=== PATIENT | male | born 1960 | race Caucasian/White ===

== ENCOUNTER 2018-10-04 20:15 | Inpatient (IN) | payer OTHER ==
[~2018-10-04] VITALS: Ht 170.2 cm; Wt 83.8 kg
[~2018-10-04 20:15] MED LIST: ATIVAN0.5 MG PO; CARVEDILOL12.5 MG PO; COREG6.25 MG PO; ESCITALOPRAM OX20 MG PO; HYDROCODON-ACE1 EAC7 PO; ISOSORBIDE DINI30 MG PO; LIPITOR80 MG PO; NORCO 5-325 TA1 EAC1 PO; PROTONIX40 M1 PO; SERTRALINE HCL50 MG PO; TORADOL 10 MG T10 MG PO; ZETIA10 MG PO
[2018-10-04 20:18] VITALS: BP 208/117
[2018-10-04 20:35] LABS: ABSOLUTE LYMPHOCYTES 1.1 thou/uL (0.8-5.3); ABSOLUTE MONOCYTES 0.9 thou/uL (0.0-1.2); ABSOLUTE NEUTROPHILS 8.1 thou/uL (1.6-8.1); BASOPHILS 0.5 %; EOSINOPHILS 0.1 %; HEMATOCRIT 49.4 % (42.0-52.0); HEMOGLOBIN 16.4 gm/dL (14.0-18.0); LYMPHOCYTES 10.5 %; MCH 29.8 pg (26.0-34.0); MCHC 33.2 g/dL (28.0-37.0); MCV 89.6 fL (80.0-100.0); MPV 8.5 fl. (7.2-11.1); NUCLEATED RBCS 0 /100WBC; PLATELET COUNT* 233 thou/uL (150-400); POLYS 79.9 %; RBC 5.51 mil/uL (4.50-6.00); RDW-CV 14.4 % (10.5-14.5); WBC 10.1 thou/uL (4.0-11.0)
[2018-10-04 20:43] LABS: ANION GAP 12 mmol/L (7-16); BUN 16 mg/dL (7-18); CALCIUM 9.3 mg/dL (8.5-10.1); CHLORIDE 99 mmol/L (98-107); CO2 25 mmol/L (21-32); CREATININE 0.8 mg/dL (0.6-1.3); GLUCOSE 131 mg/dL (70-99); POTASSIUM 4.1 mmol/L (3.5-5.1); SODIUM 136 mmol/L (136-145)
[2018-10-04 20:45] LABS: PROTIME 10.6 Seconds (9.20-11.50)
[2018-10-04 20:54] LABS: ALKALINE PHOSPHATASE 115 U/L (46-116); LIPASE 63 U/L (73-393); NT-PRO BRAIN NAT PEPTIDE 477 pg/mL (<300); SGOT 21 U/L (15-37); SGPT 34 U/L (30-65); TOTAL BILIRUBIN 0.6 mg/dL (<0.1-1.0); TOTAL PROTEIN 8.2 g/dL (6.4-8.2); TROPONIN-I LEVEL <0.06 ng/mL (<0.06)
[2018-10-05 04:26] VITALS: BP 134/70
[2018-10-05 04:30] VITALS: BP 147/85
--- NOTE | 2018-10-05 06:54 | NUR ---
REPORT RECIEVED FROM ER. PT TRANSFERED TO ROOM 228, PT ORIENTED TO ROOM, CALL LIGHT SHOWN, FALL AGREEMENT GONE OVER, PT STATED UNDERSTANDING. IV PATENT. ADMISSION DOCUMENTED. PAIN MEDS GIVEN PER E-MAR. TELE MONITOR IN PLACE. PT UNSURE OF HOME MEDICATIONS, STATING THE NAMES SOUND RIGHT, BUT HE IS UNSURE ON DOSING. HOME MEDICATIONS PLACED IN PHARMACY BAG #[id number] AND PLACED IN RETURN TO PHARMACY BIN. WILL CONTINUE WITH PLAN OF CARE.
[2018-10-05 07:00] VITALS: BP 128/69
--- NOTE | 2018-10-05 10:14 | NUR ---
INITAL ASSESSMENT COMPLETED CHARTED. VSS. TRACING SR ON MONITOR. PT C/O INTERMITTENT CHEST PAIN. PRN MMORPHONE GIVEN WITH GOOD RESULTS. PT DEIES ANY OTHER PAIN, SOD, N/V/D, DIZZINESS. PT DENIES ANY FURTHER NEEDS AT THSI TIME. HOURLY ROUNDING IN PLACE FOR PT SAFETY. CLWR
[2018-10-05 16:27] VITALS: BP 105/70
[2018-10-05 20:15] VITALS: BP 134/72
[2018-10-06] VITALS (12 sets, daily range): BP systolic 97–143; BP diastolic 51–82
[2018-10-06 05:12] LABS: CHOLESTEROL 159 mg/dL (<200); HDL CHOLESTEROL 51 mg/dL (>40); LDL CHOLESTEROL 90 mg/dL (<100); TC:HDL 3.1 Ratio (Not establshd); TRIGLYCERIDE 91 mg/dL (<150); VLDL 18 mg/dL (<40)
[2018-10-06 05:20] LABS: SERUM ASSESSMENT CLEAR
--- NOTE | 2018-10-06 05:46 | NUR ---
PT SLEPT MOST OF SHIFT. ASSESSMENT DOCUMENTED. MEDS GIVEN PER E-MAR. IV PATENT, FLUIDS INFUSING. PAIN MEDS GIVEN PER E-MAR. PT REMAINED NPO AFTER MIDNIGHT. WILL CONTINUE WITH PLAN OF CARE.
--- NOTE | 2018-10-06 10:01 | NUR ---
ASSUMED CARE OF PATIENT THIS AM AT 0730. PATIENT IS ALERT ORIENTED X 4. HE C/O CHEST PAIN AND RIGHT ARM PAIN THIS AM. DR GONZALEZ IN TO ROUND AND ORDERS GIVEN THAT PATIENT CAN HAVE A LIGHT BREAKFAST. PATIENT MEDICATED FOR PAIN X 1. PATIENT ALSO MEDICATED FOR ANXIETY. TELE SHOWS SR. WILL CONTINUE TO MONITOR PATIENT COMFORT.
--- NOTE | 2018-10-06 11:06 | NUR ---
cm completed initial assessemnt. edu pt on role of cm. discussed dc plan. pt is a&o. states he lives at home w/spouse. children and spouse are his support system. pt is employed and active. pt is ready to go home today. no hx w/hh or snf. stated niether would be necessary. plans to d/c to home. cm to remain available to assist as needed.
--- NOTE | 2018-10-06 12:54 | CON ---
[address] [address] CONSULTATION Name: JUSTO ENGLISH Room: [address] IN [facility]#: [id number] Admission: 10/05/18 Attend Phys: Adriana Darby MD Discharge: Date of : 58 Report #: [id number] THIS REPORT FOR: //name// CC: Mindy Roberts CARDIOLOGY CONSULTATION HISTORY OF PRESENT ILLNESS: I was asked by Dr. Adriana Darby to see this 58-year-old white male in Cardiology consultation for evaluation of chest pain and essential hypertension. This man's blood pressure when he was admitted was 208/117. This man has a history of coronary artery disease. He had bypass surgery in 04/2017 at [facility] and had 6-vessel bypass. Over the years, he has had 6 stents as well. He had a right carotid endarterectomy at [facility] 3 months ago. He had an VT 2 years ago. He has an inferior VT on his EKG. He has been under a lot of physical and emotional stress lately. He presented to the ER last night with chest pain. It was in the upper chest. He said it felt like he had been kicked by a mule. The pain was a 9.5 on a scale of 10. The pain would last for hours at a time and it was intermittent on and off since Saturday night. He relates the onset of this to having done a lot of heavy exertion and lifting when he moved from an apartment in [place] out to [place]. He describes his chest pain as being worse with activity, but occurring at rest as well. It was better with rest. It is associated with shortness of breath and nausea, but not diaphoresis or vomiting. It was not aggravated by food, but seemed to be relieved by food. He did not try nitroglycerin. The pain did not radiate into his neck or down his arms. Pain started at 9:00 p.m. on Saturday night. He also had epigastric pain according to the Emergency Room physician. He has been under quite a bit of emotional stress as he has a new job here at [employer]. 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 He had been taking some tramadol for tendinitis in his left elbow. Of note is that on his CT of his chest he did have evidence of the bypass surgery and significant coronary calcification as well as impressive duodenitis. His epigastric pain could be due to his duodenitis. He does have dyspnea on exertion. He does not have orthopnea. He does get paroxysmal nocturnal dyspnea, but no edema. He has had some near syncope and syncope in the past. He had a possible near syncope last night. Coronary risk factors include smoking a pack a day. He was told in no uncertain terms to stop smoking today. He does have hypercholesterolemia, but not diabetes. He does have high blood pressure. There is family history of heart disease. He has not had renal disease. He has had carotid vascular disease. He does have pain in his thighs when he walks but has never been told he had peripheral vascular disease. He has never had a stroke or TIA. He is aware of some family history of coronary artery disease; he is not sure exactly what. His father in his 80s in the and he thinks it was a heart attack. ALLERGIES: He is allergic to some antibiotic he is not sure what. It was given [facility] [address] [place] [address] CONSULTATION Name: JUSTO ENGLISH Room: [address] IN [facility].#: [id number] Admission: 10/05/18 Attend Phys: Adriana Darby MD Discharge: Date of : 58 Report #: [id number] to him IV and he got a rash from it. MEDICATIONS: He does not know his home medications. Active scripts when he came in included hydrocodone/acetaminophen 5/325 one tablet q.4 hours p.r.n. pain. Also apparently he was on sertraline 50 mg daily, lorazepam 0.5 mg p.r.n., ezetimibe 10 mg daily, Protonix 40 mg daily, Lexapro 20 mg daily, carvedilol 12.5 mg b.i.d., atorvastatin 80 mg daily and isosorbide 60 mg daily. He had not been taking his medications regularly for the last 3 or 4 weeks. PAST MEDICAL HISTORY: Other medical and surgical issues include history of appendectomy, peritonitis and tonsillectomy. SOCIAL HISTORY: He is . His is in poor health, however. 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 He has an average of 6 alcoholic beverages a week. He was told by me to stop drinking. He smokes a pack a day. He was told to stop smoking. REVIEW OF SYSTEMS: Positive for erectile dysfunction, cough, pneumonia, wheezing or asthma, chest discomfort, shortness of breath with exercise, shortness of breath with lying down, waking up short of breath, vomiting, seasonal allergies, medical allergies, depression, anxiety, arthritis, rashes, wearing glasses, decreased hearing and dentures. PHYSICAL EXAMINATION: GENERAL: He presents as a well-developed, well-nourished white male in no acute distress. VITAL SIGNS: Pulse was 68 and regular, blood pressure is 147/85, respirations are 16 and regular and temperature is 98 degrees. HEENT: His head is atraumatic. Eyes clear. NECK: Supple. There is no jugular venous distention or hepatojugular reflux. Thyroid is not enlarged. There is no adenopathy. SKIN: Warm and dry. Mucous membranes are moist. LUNGS: Clear to auscultation and percussion. HEART: Revealed normal first and second heart sounds. There is a soft S4. There is no S3. There are no murmurs, rubs, thrills, heaves, or gallops. PMI is nondisplaced. ABDOMEN: Soft, flat and nontender. No palpable masses, no organomegaly. EXTREMITIES: Reveal no cyanosis, clubbing or edema. NEUROLOGIC: The patient mentated normally, talked normally and moved all extremities normally. IMAGING AND LABORATORY DATA: His chest x-ray showed previous sternotomy. CT of the chest showed the duodenitis, previous sternotomy and coronary calcifications. Troponins were negative x 3. BNP was 477. His EKG showed normal sinus rhythm. There was an old inferior myocardial infarction with Q-waves in the inferior leads. There was late [place] [address] CONSULTATION Name: JUSTO ENGLISH Room: [address] IN [facility]#: [id number] Admission: 10/05/18 Attend Phys: Adriana Darby MD Discharge: Date of : 58 Report #: [id number] R-wave and an old anterior infarct cannot be excluded. There is left atrial enlargement. There were minor nonspecific T-wave abnormalities. IMPRESSION: 1. Chest pain which could well be cardiac pain. 2. Coronary artery disease. 3. Status post inferior myocardial infarction. 4. Essential hypertension. 5. Hyperlipidemia. 6. Smoking. 7. Duodenitis. 8. Status post bypass graft surgery x 6. 9. Status post coronary stents x 6. RECOMMENDATIONS: I would increase his antihypertensives a bit. I would do a cardiac catheterization on this man to be sure of as to what is going on with his severe chest pain he had been having. He was also offered a nuclear stress test and he prefers to have the cardiac catheterization. The risks and benefits of the cardiac catheterization were explained as were the risks and benefits of the nuclear stress test. He should also have an echo. Thank you very much for asking me to see the patient. If there are any questions, please feel free to contact me. <ELECTRONICALLY SIGNED> By: Coy Christensen MD, FACC 10/06/18 1254 1216 51F. Gautam Hernandez MD, FACC /nt
--- NOTE | 2018-10-06 16:51 | 2DMMODE ---
[place] [address] 2 D/M-MODE ECHOCARDIOGRAM Name: JUSTO ENGLISH Room: [address] IN .R.#: [id number] Admission: 10/05/18 Attend Phys: Adriana Darby, Discharge: Date of : 58 Date of Service: 10/06/18 1651 Report #: [id number] THIS REPORT FOR: //name// APPROVED REPORT Study performed: 10/06/2018 11:04:54 EXAM: Comprehensive 2D, Doppler, and color-flow Echocardiogram Patient Location: Bedside BSA: 1.87 HR: 56 bpm BP: 121/76 mmHg Other Information Study Quality: Fair Indications Chest Pain 2D Dimensions IVSd: 16.18 (7-11mm) LVOT Diam: 22.26 (18-24mm) LVDd: 40.94 mm PWd: 12.84 (7-11mm) Ascending Ao: 36.77 (22-36mm) LVDs: 32.67 (25-40mm) Aortic Root: 33.12 mm Volumes Left Atrial Volume (Systole) LA ESV Index: 36.90 mL/m2 Aortic Valve AoV Peak Jacinto.: 0.74 m/s AO Peak Gr.: 2.19 mmHg LVOT Max P.17 mmHg AO Mean Gr.: 1.40 mmHg LVOT Mean P.15 mmHg LVOT Max V: 0.74 m/s AO V2 VTI: 13.38 cm LVOT Mean V: 0.50 m/s OVI (VTI): 4.11 cm2 LVOT V1 VTI: 14.13 cm Mitral Valve E/A Ratio: 1.56 MV Decel. Time: 159.54 ms MV E Max Jacinto.: 0.74 m/s MV PHT: 46.27 ms MVA (PHT): 4.76 [place] [address] 2 D/M-MODE ECHOCARDIOGRAM Name: JUSTO ENGLISH Room: [address] IN [facility]#: [id number] Admission: 10/05/18 Attend Phys: Adriana Darby, Discharge: Date of : 58 Date of Service: 10/06/18 1651 Report #: [id number] TDI E/Lateral E': 8.22 E/Medial E': 8.22 Medial E' Jacinto.: 0.09 m/s Lateral E' Jacinto.: 0.09 m/s Pulmonary Valve PV Peak Jacinto.: 0.80 m/s PV Peak Gr.: 2.56 mmHg Left Ventricle The left ventricle is normal size. There is inferobasilar hypokinesis. Mild concentric left ventricular hypertrophy. Left ventricular systolic function is normal. The left ventricular ejection fraction is within the normal range. LVEF is 55%. The left ventricular diastolic function is normal. Right Ventricle The right ventricle is normal size. The right ventricular systolic function is normal. Atria Left atrium is mildly dilated. The right atrium size is normal. Aortic Valve The aortic valve is normal in structure. No aortic regurgitation is present. There is no aortic valvular stenosis. Mitral Valve The mitral valve is normal in structure. Trace mitral regurgitation. No evidence of mitral valve stenosis. Tricuspid Valve The tricuspid valve is normal in structure. There is no tricuspid valve regurgitation noted. Pulmonic Valve The pulmonary valve is normal in structure. There is no pulmonic valvular regurgitation. Great Vessels The aortic root is normal in size. IVC is normal in size and collapses >50% with inspiration. Pericardium There [place] [address] 2 D/M-MODE ECHOCARDIOGRAM Name: JUSTO ENGLISH Room: [address]#: [id number] Admission: 10/05/18 Attend Phys: Adriana Darby, Discharge: Date of : 58 Date of Service: 10/06/18 1651 Report #: [id number] <Conclusion> The left ventricle is normal size. Mild concentric left ventricular hypertrophy. Left ventricular systolic function is normal. The left ventricular ejection fraction is within the normal range. LVEF is 55%. The right ventricle is normal size. Left atrium is mildly dilated. The aortic valve is normal in structure. The mitral valve is normal in structure. Trace mitral regurgitation. The tricuspid valve is normal in structure. IVC is normal in size and collapses >50% with inspiration. There is no pericardial effusion. There is inferobasilar hypokinesis. <ELECTRONICALLY SIGNED> By: Lei Sharp MD, FACC 10/06/18 165 50 50 Lei Sharp MD, FACC /INF
--- NOTE | 2018-10-06 16:57 | EKG ---
[place] [address] ELECTROCARDIOGRAM REPORT Name: JUSTO ENGLISH Room: [address] ADM IN [facility]#: [id number] Admission: 10/05/18 Attend Phys: Adriana Darby MD Discharge: Date of : 58 Report #: [id number] THIS REPORT FOR: //name// [facility] ED Test Date: 2018-10-04 Test Time: 20:19:58 Pat Name: JUSTO ENGLISH Department: Room: [facility] Gender: M Char Conveyor Tender Cellar: : 1960 Requested By: Spencer Martinez Order Number: [id number] MD: Goran Waters Measurements Intervals [place] Rate: 83 P: 45 MO: 133 QRS: 54 QRSD: 92 T: 109 QT: 384 QTc: 452 Interpretive Statements Sinus rhythm Left atrial enlargement Abnormal R-wave progression, late transition Inferior infarct, old Lateral leads are also involved Baseline wander in lead(s) V1,V3,V4,V5,V6 No previous ECG available for comparison Electronically Signed On 10-06-2018 16:56:48 CDT by Goran Waters [email or web address] <ELECTRONICALLY SIGNED> By: Goran Waters MD, FACC 10/06/18 1656 18 18 Goran Waters MD, FAC /EPI
[2018-10-07] VITALS: BP 112/78
[2018-10-07 04:00] VITALS: BP 111/69
[2018-10-07 04:35] LABS: HEMATOCRIT 39.5 % (42.0-52.0); MCHC 32.8 g/dL (28.0-37.0); MCV 91.5 fL (80.0-100.0); MPV 8.8 fl. (7.2-11.1); RBC 4.31 mil/uL (4.50-6.00); RDW-CV 14.6 % (10.5-14.5); WBC 7.1 thou/uL (4.0-11.0)
[2018-10-07 04:58] LABS: ALBUMIN 2.8 g/dL (3.4-5.0); CALCIUM 8.2 mg/dL (8.5-10.1); CREATININE 1.1 mg/dL (0.6-1.3); POTASSIUM 4.7 mmol/L (3.5-5.1); TOTAL BILIRUBIN 0.3 mg/dL (<0.1-1.0); TOTAL PROTEIN 5.8 g/dL (6.4-8.2); TROPONIN-I LEVEL 0.11 ng/mL (<0.06)
--- NOTE | 2018-10-07 06:32 | NUR ---
PT'S GROIN SITE SOFT NON TENDER, NO BRUISING OR HEMATOMA. SMALL AMOUNT OF BLOOD TO ANGIOSEAL. PT GIVEN PRN VICODIN DURING SHIFT FOR PAIN IN RIGHT ELBOW ASSOCIATED WITH TENDON INJURY PER PT'S REPORT.
[2018-10-07 07:30] VITALS: BP 122/60
[2018-10-07 09:46] VITALS: BP 122/60
--- NOTE | 2018-10-07 10:22 | NUR ---
RECEIVED PT CARE 0700. HE IS AWAKE/ALERT AND ORIENTED X4. VSS. LUGGAGE LINER TRACING SB. HE DENIES ANY SOA. O2 SAT 96% ON ROOM AIR. UP AD ISAIAH IN ROOM, GAIT IS STEADY. AM ASSESSMENT CHARTED. MEDS GIVEN PER MAR. PATIENT ANXIOUS FOR DC POTENTIALLY TODAY. CARDIOLOGY SIGNING OFF PER DR GONZALEZ. CALL LIGHT WITHIN REACH. WILL CONTINUE TO MONITOR.
[2018-10-07 11:21] VITALS: BP 124/62
[2018-10-07 11:39] VITALS: BP 122/60
[2018-10-07] MEDS ORDERED: ISORDIL10 MG PO (11:58)
[2018-10-07] MEDS ORDERED: PANTOPRAZOLE SO40 M1 PO (11:58)
[2018-10-07] MEDS ORDERED: CARVEDILOL12.5 MG PO (11:58)
[2018-10-07] MEDS ORDERED: ASPIR 8181 MG PO (11:58)
[2018-10-07] MEDS ORDERED: CLOPIDOGREL75 MG PO (11:58)
--- NOTE | 2018-10-07 15:00 | CARD ---
[address] [address] CARDIAC CATH REPORT Name: JUSTO ENGLISH Room: [address]#: [id number] Admission: 10/05/18 Attend Phys: Adriana Darby MD Discharge: 10/07/18 Date of : 58 Report #: [id number] THIS REPORT FOR: //name// APPROVED REPORT Study performed: 10/06/2018 14:37:56 Patient Details The patient is a 58 year-old male Event Personnel Lei Sharp Windlasser, Stacey English RN Service Greeter, Luca Barber INSERT MOLDING OPERATOR Scrub, Selin Cates RTR Monitor, Сергей Luke INSERT MOLDING OPERATOR Monitor Procedures Performed Left Heart Cath Coronaries, Bypass Grafts [id number] LHCCORCABG CHARISSE Place w/wo Plasty Single CIRC [id number] PTCA Single Vessel OM [id number] PCISINGLE Indication Unstable angina Risk Factors Hypercholesterolemia, Hypertension Previous Procedures/Diagnoses Previous CABGPrevious PCI Admission/Lab Medications/Medications given during procedure Angiomax bolus and infusion Procedure Narrative The patient was brought electively to the Cardiac Catheterization Laboratory and was prepped and draped in a sterile manner. The right femoral was infiltrated with 2% Lidocaine subcutaneous anesthesia. A [place] 6 FR sheath was inserted into the RFA. Coronary angiography was performed using coronary diagnostic catheters. The right coronary system was accessed and visualized with a Diagnostic catheter. The left coronary system was accessed and visualized with a AR2 Mod catheter. The left ventricle was accessed and visualized with a JL4 catheter. Left ventricular/Aortic Valve gradient assessed via catheter pullback. Pre-demployment femoral angiogram was performed . Closure device was deployed with a 6 Fr Angioseal. The patient tolerated the procedure well and [place] [address] CARDIAC CATH REPORT Name: JUSTO ENGLISH Room: [address]#: [id number] Admission: 10/05/18 Attend Phys: Adriana Darby MD Discharge: 10/07/18 Date of : 58 Report #: [id number] associated with the procedure. There was no hematoma. Intraoperative Conscious Sedation Sedation start time: 151 Case end Time: 1617 Fentanyl 50 mcg Fluoro Time: 18.1 minutes Dose: DAP 296108 cGycm2 2934 mGy Contrast Type and Amount: Visipaque 360 ml [place] Artery Percent Stenosis Grafts (Complete if Previous CABG=Yes: Percent Stenosis) #1 patent GRADY graft to the LAD with 50% ostial narrowing #2 widely patent saphenous vein graft the distal right coronary artery #3 occlusion of the previously constructed vein graft the circumflex coronary artery with persistence of the interposition portion between 2 distal marginal branches Diagnostic Cath Left Main 40% tubular narrowing LAD 40-50% ostial narrowing with 75% tubular mid to distal narrowing and reciprocal flow reflecting a patent GRADY graft to the distal LAD Circumflex 80% ostial narrowing with 90% proximal stenosis and 95% stenosis of the proximal portion of the first marginal branch with 50% tubular distal circumflex narrowing and the presence of an interposition graft between 2 distal marginal branches Right Coronary 100% proximal occlusion Left Ventriculography The left ventricle is normal in size with normal contractility. The left ventricular ejection fraction is estimated to be 55%. Left ventricular wall motion abnormalities are present. There is no mitral insufficiency. Inferobasilar hypokinesis is noted Hemodynamics The aortic pressure is 105/40 mmHg with a mean of 70 mmHg. The left ventricular pressure is 108/5 mmHg with a mean of mmHg. The left ventricular end diastolic pressure is 24 mmHg. There was no gradient across the aortic valve upon pullback. PCI Technique Lesion Anticoagulation was achieved with Angiomax. [place] [address] CARDIAC CATH REPORT Name: JUSTO ENGLISH Room: [address]#: [id number] Admission: 10/05/18 Attend Phys: Adriana Darby MD Discharge: 10/07/18 Date of : 58 Report #: [id number] with Angiomax IV 13 ml. Percutaneous coronary intervention was performed on the first obtuse marginal branch segment. The lesion stenosis prior to intervention was 95% with SRAVAN 2 flow. A 6F XB LAD 3.5 Guide Catheter was used to engage the Left ostium. A IG: BMW 190cm Interventional Guidewire was used to cross the lesion. BALLOON DILATION A Balloon catheter Trek RX 2.25 X 8 was inserted and inflated up to 12atm for 10seconds. STENT DEPLOYMENT A stent was inserted and inflated up to 20.00atm for 8seconds. Final angiography reveals 30 % stenosis with SRAVAN flow. PCI Technique Lesion 2 Percutaneous Coronary Intervention was performed on the proximal circumflex. The lesion stenosis prior to intervention was 90% with SRAVAN 3 flow. Balloon Dilation A Balloon catheter Trek RX 2.25 X 8 was inserted and inflated up to 15.00atm for 12seconds. Stent Deployment A drug-eluting stent was inserted and inflated up to jose for seconds. Final angiography reveals 10 % stenosis with SRAVAN 3 flow. PCI Technique Lesion 3 Percutaneous Coronary Intervention was performed on the ostial circumflex. The lesion stenosis prior to intervention was 80% with SRAVAN 3 flow. Stent Deployment A drug-eluting stent Xience Aletha 2.75X8mm was inserted and inflated up to 14atm for 10seconds. Final angiography reveals 0 % stenosis with SRAVAN 3 flow. Comments This is a complex procedure by virtue of marked calcification in the proximal circumflex location and nature of the bifurcation circumflex disease [place] [address] CARDIAC CATH REPORT Name: JUSTO ENGLISH Room: [address] [place] [facility]#: [id number] Admission: 10/05/18 Attend Phys: Adriana Darby MD Discharge: 10/07/18 Date of : 58 Report #: [id number] preparation Conclusion #1 severe multivessel coronary artery disease characterized by the following: A 40% tubular left main coronary artery coronary artery narrowing B 40-50% ostial LAD narrowing with 75% tubular mid to distal LAD narrowing and reciprocal flow distally reflecting a patent GRADY graft C 80% ostial with 90% proximal circumflex proximal stenosis and 95% stenosis of the proximal portion of the first marginal branch with 50% irregular distal circumflex narrowing D 100% proximal right coronary artery occlusion #2 graft study characterized by the following: A 50% very proximal narrowing of the GRADY graft to the LAD B widely patent saphenous vein graft to the distal right coronary artery C total occlusion of the proximal portion of the vein graft the circumflex with patency of the interposition portion of the graft between 2 marginal branches #3 moderate elevation of left ventricular end-diastolic pressure at rest #4 successful percutaneous coronary intervention with deployment of sequential drug-eluting stents at the sites of 80% ostial and 90% proximal circumflex stenosis with 0 and 10% residual narrowings #5 successful percutaneous transluminal coronary angioplasty the site of 95% ostial first marginal narrowing with 30% residual narrowing Recommendations Cardiac Risk Reduction Program Medications Administered Aspirin (any) [place] [address] CARDIAC CATH REPORT Name: JUSTO ENGLISH Room: [address]#: [id number] Admission: 10/05/18 Attend Phys: Adriana Darby MD Discharge: 10/07/18 Date of : 58 Report #: [id number] Diagnostic Cath Approved by: Lei Sharp MD Date/Time: 10/07/2018 14:52:39 <ELECTRONICALLY SIGNED> By: Lei Sharp MD, [facility] 10/07/18 1459 1459 1459Lei Sharp MD, [facility] /INF
--- NOTE | 2018-10-07 18:30 | EKG ---
[place] [address] ELECTROCARDIOGRAM REPORT Name: JUSTO ENGLISH Room: [address] IN .R.#: [id number] Admission: 10/05/18 Attend Phys: Adriana Darby MD Discharge: 10/07/18 Date of : 58 Report #: [id number] THIS REPORT FOR: //name// [facility] Test Date: 2018-10-06 Test Time: 17:38:12 Pat Name: JUSTO ENGLISH Department: Room: [address] Gender: M Saturator: : 1960 Requested By: Lei Sharp Order Number: [id number] Vianey MD: Goran Waters Measurements Intervals [place] Rate: 61 P: 53 [place]: 133 QRS: 65 QRSD: 100 T: 149 QT: 439 QTc: 443 Interpretive Statements Sinus rhythm Left atrial enlargement Inferior infarct, old Lateral leads are also involved Compared to ECG 10/04/2018 20:19:58 No significant changes Electronically Signed On 10-07-2018 18:29:57 CDT by Goran Waters [email or web address] <ELECTRONICALLY SIGNED> By: Goran Waters MD, FACC 10/07/18 1829 1738 1738 Goran Waters MD, [facility] /EPI
--- NOTE | 2018-10-07 18:34 | EKG ---
[place] [address] ELECTROCARDIOGRAM REPORT Name: JUSTO ENGLISH Room: [address] IN ..#: [id number] Admission: 10/05/18 Attend Phys: Adriana Darby MD Discharge: 10/07/18 Date of : 58 Report #: [id number] THIS REPORT FOR: //name// [facility] Test Date: 2018-10-07 Test Time: 08:27:36 Pat Name: JUSTO ENGLISH Department: Room: [address] Gender: M Senior Staff Consultant: : 1960 Requested By: Lei Sharp Order Number: [id number] Vianey MD: Goran Waters Measurements Intervals [place] Rate: 58 P: 48 VA: 133 QRS: 65 QRSD: 95 T: 92 QT: 416 QTc: 409 Interpretive Statements Sinus rhythm Atrial premature complex Left atrial enlargement Inferior infarct, old Lateral leads are also involved Compared to ECG 10/04/2018 20:19:58 Atrial premature complex(es) now present Myocardial infarct finding still present Electronically Signed On 10-07-2018 18:33:53 CDT by Goran Waters [email or web address] <ELECTRONICALLY SIGNED> By: Goran Waters MD, FACC 10/07/18 1833 0827 0827 Goran Waters MD, [facility] /EPI
== END 2018-10-07 13:59 | disposition home or self-care (01) | DRG 247 ==
LOC: M.ERS 20:15 → M.TBA-ER 10-05 02:19 → M.2W 10-05 02:19
PROVIDERS: Emergency Medicine; Internal Medicine; ADMIT Internal Medicine
PROC: B211YZZ Fluoroscopy of Multiple Coronary Arteries using Other Contrast (ICD-10-PCS; principal; 2018-10-06)
PROC: 027136Z Dilation of Coronary Artery, Two Arteries with Three Drug-eluting Intraluminal Devices, Percutaneous Approach (ICD-10-PCS; principal; 2018-10-06)
PROC: B215YZZ Fluoroscopy of Left Heart using Other Contrast (ICD-10-PCS; principal; 2018-10-06)
PROC: B218YZZ Fluoroscopy of Left Internal Mammary Bypass Graft using Other Contrast (ICD-10-PCS; principal; 2018-10-06)
PROC: B213YZZ Fluoroscopy of Multiple Coronary Artery Bypass Grafts using Other Contrast (ICD-10-PCS; principal; 2018-10-06)
PROC: 4A023N7 Measurement of Cardiac Sampling and Pressure, Left Heart, Percutaneous Approach (ICD-10-PCS; principal; 2018-10-06)
DX: I25.810 Atherosclerosis of coronary artery bypass graft(s) without angina pectoris (principal); I10 Essential (primary) hypertension; K29.80 Duodenitis without bleeding; E78.5 Hyperlipidemia, unspecified; G89.29 Other chronic pain; M54.9 Dorsalgia, unspecified; F17.210 Nicotine dependence, cigarettes, uncomplicated; M77.9 Enthesopathy, unspecified; I73.9 Peripheral vascular disease, unspecified; K40.90 Unilateral inguinal hernia, without obstruction or gangrene, not specified as recurrent; K21.9 Gastro-esophageal reflux disease without esophagitis; F10.20 Alcohol dependence, uncomplicated; Z91.14 Patient's other noncompliance with medication regimen; I25.2 Old myocardial infarction; Z95.1 Presence of aortocoronary bypass graft; Z95.5 Presence of coronary angioplasty implant and graft; Z90.49 Acquired absence of other specified parts of digestive tract; Z79.899 Other long term (current) drug therapy; Z88.1 Allergy status to other antibiotic agents

== ENCOUNTER 2019-01-19 21:14 | Emergency (ER) | payer OTHER ==
[~2019-01-19] VITALS: Ht 170.2 cm; Wt 80.7 kg
[~2019-01-19 21:14] MED LIST changes: +ASPIR 8181 MG PO; +CLOPIDOGREL75 MG PO; +ISORDIL10 MG PO; +PANTOPRAZOLE SO40 M1 PO
[2019-01-19 21:52] LABS: ABSOLUTE BASOPHILS 0.1 thou/uL (0.0-0.2); ABSOLUTE EOSINOPHILS 0.2 thou/uL (0.0-0.7); ABSOLUTE MONOCYTES 0.7 thou/uL (0.0-1.2); ABSOLUTE NEUTROPHILS 5.5 thou/uL (1.6-8.1); BASOPHILS 0.7 %; EOSINOPHILS 2.7 %; HEMATOCRIT 43.5 % (42.0-52.0); HEMOGLOBIN 14.6 gm/dL (14.0-18.0); LYMPHOCYTES 23.6 %; MCH 30.4 pg (26.0-34.0); MCHC 33.6 g/dL (28.0-37.0); MCV 90.3 fL (80.0-100.0); MONOCYTES 8.1 %; NUCLEATED RBCS 0 /100WBC; PLATELET COUNT* 206 thou/uL (150-400); POLYS 64.9 %; RBC 4.81 mil/uL (4.50-6.00); RDW-CV 13.2 % (10.5-14.5); WBC 8.4 thou/uL (4.0-11.0)
[2019-01-19 21:58] LABS: CALCIUM 9.3 mg/dL (8.5-10.1); CREATININE 1.1 mg/dL (0.6-1.3)
[2019-01-19 22:09] LABS: ALBUMIN 3.6 g/dL (3.4-5.0); TOTAL BILIRUBIN 0.2 mg/dL (<0.1-1.0); TOTAL PROTEIN 7.5 g/dL (6.4-8.2)
[2019-01-19] MEDS ORDERED: PROTONIX40 MG PO (22:09)
[2019-01-19] MEDS ORDERED: CARAFATE 1 GM TA1 GM PO (22:09)
[2019-01-19 23:24] VITALS: BP 161/88
== END 2019-01-19 23:25 | disposition home or self-care (01) ==
LOC: M.ERS 21:14
PROVIDERS: Emergency Medicine
DX: R12 Heartburn (principal); R10.12 Left upper quadrant pain; I10 Essential (primary) hypertension; Z90.49 Acquired absence of other specified parts of digestive tract; Z95.1 Presence of aortocoronary bypass graft

== ENCOUNTER → 2019-01-26 | Outpatient (CLI) | payer OTHER ==
[~2019-01-26] MED LIST changes: +CARAFATE 1 GM TA1 GM PO; +PROTONIX40 MG PO
[2019-01-26 15:40] LABS: ABSOLUTE BASOPHILS 0.1 thou/uL (0.0-0.2); ABSOLUTE EOSINOPHILS 0.1 thou/uL (0.0-0.7); ABSOLUTE LYMPHOCYTES 1.8 thou/uL (0.8-5.3); ABSOLUTE MONOCYTES 0.6 thou/uL (0.0-1.2); ABSOLUTE NEUTROPHILS 3.7 thou/uL (1.6-8.1); BASOPHILS 0.9 %; EOSINOPHILS 2.1 %; HEMATOCRIT 43.4 % (42.0-52.0); HEMOGLOBIN 14.9 gm/dL (14.0-18.0); LYMPHOCYTES 28.6 %; MCH 30.8 pg (26.0-34.0); MCHC 34.2 g/dL (28.0-37.0); MCV 90.1 fL (80.0-100.0); MONOCYTES 9.2 %; MPV 8.6 fl. (7.2-11.1); NUCLEATED RBCS 0 /100WBC; PLATELET COUNT* 219 thou/uL (150-400); POLYS 59.2 %; RBC 4.82 mil/uL (4.50-6.00); RDW-CV 13.2 % (10.5-14.5); WBC 6.2 thou/uL (4.0-11.0)
[2019-01-26 15:56] LABS: ALBUMIN 3.8 g/dL (3.4-5.0); ALKALINE PHOSPHATASE 95 U/L (46-116); ANION GAP 9 mmol/L (7-16); BUN 22 mg/dL (7-18); CALCIUM 9.3 mg/dL (8.5-10.1); CHLORIDE 105 mmol/L (98-107); CHOLESTEROL 178 mg/dL (<200); CO2 27 mmol/L (21-32); GLUCOSE 104 mg/dL (70-99); HDL CHOLESTEROL 39 mg/dL (>40); LDL CHOLESTEROL 120 mg/dL (<100); POTASSIUM 4.6 mmol/L (3.5-5.1); SERUM ASSESSMENT CLEAR; SGOT 9 U/L (15-37); SGPT 31 U/L (30-65); SODIUM 141 mmol/L (136-145); TC:HDL 4.6 Ratio (Not establshd); TOTAL BILIRUBIN 0.3 mg/dL (<0.1-1.0); TOTAL PROTEIN 7.4 g/dL (6.4-8.2); TRIGLYCERIDE 97 mg/dL (<150); VLDL 19 mg/dL (<40)
[2019-01-27 02:10] LABS: GLYCOHEMOGLOBIN (HGB A1C) 5.8 % (4.8-5.6)
== END ==
LOC: M.LAB 15:13
PROVIDERS: Internal Medicine
DX: I10 Essential (primary) hypertension (principal); I25.810 Atherosclerosis of coronary artery bypass graft(s) without angina pectoris; E78.00 Pure hypercholesterolemia, unspecified; N52.9 Male erectile dysfunction, unspecified; F32.9 Major depressive disorder, single episode, unspecified

== ENCOUNTER 2019-05-21 10:49 | Inpatient (IN) | payer OTHER ==
[~2019-05-21] VITALS: Ht 170.2 cm; Wt 81.6 kg
[~2019-05-21 10:49] MED LIST changes: +LIPITOR40 MG PO; -LIPITOR80 MG PO
[2019-05-21 10:52] VITALS: BP 182/99
[2019-05-21 11:25] LABS: ABSOLUTE EOSINOPHILS 0.3 thou/uL (0.0-0.7); ABSOLUTE LYMPHOCYTES 1.4 thou/uL (0.8-5.3); ABSOLUTE MONOCYTES 0.6 thou/uL (0.0-1.2); ABSOLUTE NEUTROPHILS 3.6 thou/uL (1.6-8.1); BASOPHILS 0.5 %; EOSINOPHILS 4.5 %; HEMATOCRIT 44.3 % (42.0-52.0); HEMOGLOBIN 15.1 gm/dL (14.0-18.0); LYMPHOCYTES 23.7 %; MCV 91.1 fL (80.0-100.0); MPV 9.2 fl. (7.2-11.1); NUCLEATED RBCS 0 /100WBC; PLATELET COUNT* 177 thou/uL (150-400); POLYS 61.3 %; RBC 4.86 mil/uL (4.50-6.00); RDW-CV 13.6 % (10.5-14.5)
[2019-05-21 11:29] LABS: APTT 26.1 Seconds (25.0-31.3); PROTIME 10.3 Seconds (9.20-11.50)
[2019-05-21 11:30] LABS: CALCIUM 8.5 mg/dL (8.5-10.1)
[2019-05-21 11:41] LABS: ALBUMIN 3.7 g/dL (3.4-5.0); CK-MB MASS 1.5 ng/mL (<0.5-3.6); MAGNESIUM 2.2 mg/dL (1.8-2.4); TOTAL BILIRUBIN 0.6 mg/dL (<0.1-1.0); TOTAL PROTEIN 7.4 g/dL (6.4-8.2)
[2019-05-21 15:33] VITALS: BP 170/101
--- NOTE | 2019-05-21 16:44 | EKG ---
[place] [address] ELECTROCARDIOGRAM REPORT Name: JUSTO ENGLISH Room: [place] [address] ADM IN [facility]#: [id number] Admission: 05/21/19 Attend Phys: Luca Perez, Discharge: Date of : 58 Date of Service: 05/21/19 1054 Report #: [id number] THIS REPORT FOR: //name// [facility] ED Test Date: 2019-05-21 Test Time: 10:54:51 Pat Name: JUSTO ENGLISH Department: Room: [facility] Gender: M Pipeline Executive: [facility] : 1960 Requested By: Homer Aquino Order Number: [id number] MD: Lei Sharp Measurements Intervals [place] Rate: 70 P: 38 IA: 140 QRS: 37 QRSD: 94 T: 94 QT: 401 QTc: 433 Interpretive Statements Sinus rhythm Left atrial enlargement Abnormal R-wave progression, late transition Inferior infarct, old Lateral leads are also involved Compared to ECG 10/07/2018 08:27:36 Atrial premature complex(es) no longer present Myocardial infarct finding still present Electronically Signed On 05-21-2019 16:42:53 CDT by Lei Sharp [email or web address] <ELECTRONICALLY SIGNED> By: Lei Sharp MD, [facility] 05/21/19 1642 1054 1054 Lei Sharp MD, [facility] /EPI
[2019-05-21 17:13] VITALS: BP 177/108
[2019-05-21 17:51] VITALS: BP 155/84
[2019-05-21 18:55] VITALS: BP 173/89
[2019-05-21 23:40] VITALS: BP 149/91
[2019-05-22 03:55] VITALS: BP 115/65
[2019-05-22 08:00] VITALS: BP 154/91
[2019-05-22 10:44] VITALS: BP 138/81
[2019-05-22 11:40] LABS: HEMATOCRIT 40.8 % (42.0-52.0); HEMOGLOBIN 13.5 gm/dL (14.0-18.0); MCH 30.5 pg (26.0-34.0); MCHC 33.2 g/dL (28.0-37.0); MPV 9.5 fl. (7.2-11.1); RBC 4.44 mil/uL (4.50-6.00); RDW-CV 13.8 % (10.5-14.5); WBC 5.7 thou/uL (4.0-11.0)
[2019-05-22 12:00] LABS: CHOLESTEROL 128 mg/dL (<200); HDL CHOLESTEROL 41 mg/dL (>40); LDL CHOLESTEROL 73 mg/dL (<100); SERUM ASSESSMENT Clear; TC:HDL 3.1 Ratio (Not establshd); TRIGLYCERIDE 73 mg/dL (<150); VLDL 15 mg/dL (<40)
[2019-05-22 12:23] LABS: ALBUMIN 3.5 g/dL (3.4-5.0); CALCIUM 8.3 mg/dL (8.5-10.1); CREATININE 0.7 mg/dL (0.6-1.3); POTASSIUM 4.2 mmol/L (3.5-5.1); TOTAL BILIRUBIN 0.5 mg/dL (<0.1-1.0); TOTAL PROTEIN 6.4 g/dL (6.4-8.2)
[2019-05-22 14:03] VITALS: BP 143/82
--- NOTE | 2019-05-22 16:48 | EKG ---
[place] [address] ELECTROCARDIOGRAM REPORT Name: JUSTO ENGLISH Room: [address] IN [facility]#: [id number] Admission: 05/21/19 Attend Phys: Goran Waters, Discharge: Date of : 58 Date of Service: 05/22/192 Report #: [id number] THIS REPORT FOR: //name// [facility] Test Date: 2019-05-22 Test Time: 03:12:36 Pat Name: JUSTO ENGLISH Department: Room: [facility] Gender: M Drive Man: 2 : 1960 Requested By: Goran Waters Order Number: [id number] Reading MD: Lei Sharp Measurements Intervals [place] Rate: 65 P: 46 ID: 140 QRS: 52 QRSD: 97 T: 113 QT: 416 QTc: 433 Interpretive Statements Sinus rhythm Left atrial enlargement Inferior infarct, old anterolateral st-t changes, consider ischemia Compared to ECG 05/21/2019 10:54:51 [address] st-t changes have occurred Electronically Signed On 05-22-2019 16:46:48 CDT by Lei Sharp [email or web address] <ELECTRONICALLY SIGNED> By: Lei Sharp MD, [facility] 05/22/19 1646 1 1 Lei Sharp MD, [facility] /EPI
[2019-05-22 17:18] VITALS: BP 124/102
[2019-05-23] VITALS (13 sets, daily range): BP systolic 105–149; BP diastolic 61–101
--- NOTE | 2019-05-23 12:36 | NUR ---
ASSUMED CARE OF PATIENT THIS AM AT 0730. PATIENT IS ALERT AND ORIENTED X 4. HE C/O CONTINUED CHEST PAIN THIS AM. PATIENT KEPT NPO FOR CARDIAC CATH THIS AM. CATH TO BE THIS AFTERNOON SO PATIENT WAS GIVEN CLEAR LIQUIDS. TELE SHOWS NSR. IV FLUIDS INFUSING PER ORDER. WILL CONTINUE TO MONITOR PATIENT COMFORT.
[2019-05-24] VITALS: BP 131/76
[2019-05-24 04:00] VITALS: BP 135/78
[2019-05-24 05:18] LABS: CALCIUM 8.2 mg/dL (8.5-10.1); CREATININE 0.8 mg/dL (0.6-1.3); MAGNESIUM 2.1 mg/dL (1.8-2.4)
[2019-05-24 08:00] VITALS: BP 156/91
[2019-05-24] MEDS ORDERED: IMDUR 60 MG TAB60 M1 PO (08:18)
[2019-05-24] MEDS ORDERED: RANEXA500 MG PO (08:18)
[2019-05-24 12:00] VITALS: BP 119/71
--- NOTE | 2019-05-24 12:55 | NUR ---
ASSUMED CARE OF PATIENT THIS AM AT 0730. PATIENT IS ALERT AND ORIENTED X 4 AND IN GOOD SPIRITS. TELE SHOWS SR. HE HAS SLEPT OFF AND ON TODAY. HE SAID PAIN WAS RELIEVED BY MEDICATION GIVEN BY CHASSIS INSPECTOR. DR OBYCE IN TO ROUND LATE IN THE AM AND DISCHARGE ORDERS WERE WRITTEN. PATIENT IS TO DISCHRGE TO [facility] TODAY.
[2019-05-24 14:27] VITALS: BP 138/81
--- NOTE | 2019-05-26 16:00 | CARD ---
[address] [address] CARDIAC CATH REPORT Name: JUSTO ENGLISH Room: [address]#: [id number] Admission: 05/21/19 Attend Phys: Luca Perez MD Discharge: 05/24/19 Date of : 58 Report #: [id number] THIS REPORT FOR: //name// cc: Coy Mason MD, David L. MD ~ THIS REPORT FOR: //name// ADDENDUM APPROVED REPORT Study performed: 05/21/2019 14:25:08 Patient Details The patient is a 59 year-old male Event Personnel Goran Waters Patients Transporter, Vandana Keane RN RN, Long García RN RN, Luca Barber OVEN PRESS TENDER Monitor, Selin Cates RTR Dwayneub, Lei Sharp County Supervisor Procedures Performed Left heart catheterization selective coronary arteriography aortocoronary saphenous vein bypass graft study GRADY graft study, angioplasty of the first marginal branch of the circumflex and stenting of the distal circumflex Indication Unstable angina Risk Factors Hypercholesterolemia, Hypertension Admission/Lab Medications/Medications given during procedure Angiomax bolus and infusion Procedure Narrative The patient was brought electively to the Cardiac Catheterization Laboratory and was prepped and draped in a sterile manner. The right femoral was infiltrated with 2% Lidocaine subcutaneous anesthesia. A Ora 6 FR sheath was inserted into the . Coronary angiography was performed using coronary diagnostic catheters. The right coronary system was accessed and visualized with a Diagnostic - JR4 catheter. The left coronary system was accessed and visualized with a Diagnostic - JL4 catheter. The left ventricle was accessed and visualized with a Diagnostic - ANG PIG catheter. Left ventricular/Aortic Valve gradient assessed [place] [address] CARDIAC CATH REPORT Name: JUSTO ENGLISH Room: [address]#: [id number] Admission: 05/21/19 Attend Phys: Luca Perez MD Discharge: 05/24/19 Date of : 58 Report #: [id number] Pre-demployment femoral angiogram was performed . Closure device was deployed with a Fr Angioseal STS 6Fr. The patient tolerated the procedure well and there were no complications associated with the procedure. There was no hematoma. SVG VISUALIZED WITH A MPA. GRADY VISUALIZED WITH IM. Intraoperative Conscious Sedation Sedation start time: 7 Case end Time: 16:21 Fentanyl 100 mcg Versed 2 mg Fluoro Time: 28.1 minutes Dose: DAP 480248 cGycm2 3366 mGy Contrast Type and Amount: Visipaque 275 ml [place] Artery Percent Stenosis #1 widely patent GRADY graft to the LAD #2 widely patent saphenous vein graft to the distal right coronary artery #3 patent interposition graft between 2 marginal branches of the circumflex Diagnostic Cath Left Main 0% narrowing LAD 80% ostial LAD stenosis with 100% mid vessel occlusion Circumflex 75% tubular distal circumflex stenosis with 90% ostial first marginal stenosis Right Coronary 100% mid vessel occlusion Hemodynamics The aortic pressure is 177/78 mmHg with a mean of 104 mmHg. The left ventricular pressure is 152/6 mmHg with a mean of mmHg. The left ventricular end diastolic pressure is 28 mmHg. PCI Technique Lesion Anticoagulation was achieved with Angiomax. Patient was preloaded with Angiomax IV 13 ml. Percutaneous coronary intervention was performed on the first obtuse marginal branch segment. The lesion stenosis prior to intervention was 95% with SRAVAN 2 flow. A 6F XB LAD 3.5 Guide Catheter was used to engage the ostium. A IG: BMW 190cm Interventional Guidewire was used to cross the lesion[place] [address] CARDIAC CATH REPORT Name: JUSTO ENGLISH Room: [address]#: [id number] Admission: 05/21/19 Attend Phys: Luca Perez MD Discharge: 05/24/19 Date of : 58 Report #: [id number] A Balloon catheter Trek RX 2.25 X 8 was inserted and inflated up to 18.00atm for 17seconds. Additional Inflation: 22.00atm for 16seconds. POST STENT DEPLOYMENT BALLOON DILATION A Balloon catheter Trek RX 2.25 X 8 was inserted and inflated up to 10.00atm for 11seconds. Additional Inflation: 14.00atm for 14seconds. Additional Inflation: 16.00atm for 14seconds. 16 JOVANY FOR 13 SEC Final angiography reveals 20 % stenosis with SRAVAN 3 flow. PCI Technique Lesion 2 Percutaneous Coronary Intervention was performed on the distal circumflex artery segment. Patient was preloaded with Angiomax IV 13 ml. The lesion stenosis prior to intervention was 75% with SRAVAN 2 flow. Balloon Dilation A Balloon catheter Trek RX 2.25 X 15 was inserted and inflated up to 10.00atm for 14seconds. Additional Inflation: 10.00atm for 12seconds. Stent Deployment A stent [place] RX Stent 2.47J19dp was inserted and inflated up to 10.00atm for 12seconds. Additional Inflation: 12.00atm for 10seconds. Additional Inflation: 12.00atm for 12seconds. Final angiography reveals 10 % stenosis with SRAVAN 3 flow. Conclusion #1 significant multivessel coronary artery disease characterized by the following A 80% ostial LAD stenosis with 100% mid vessel occlusion B 75% tubular narrowing of the distal circumflex with 90% ostial first marginal narrowing C 100% mid right coronary occlusion #2 graft study characterized by the following: A widely patent GRADY [place] [address] CARDIAC CATH REPORT Name: JUSTO ENGLISH Room: [address]#: [id number] Admission: 05/21/19 Attend Phys: Luca Perez MD Discharge: 05/24/19 Date of : 58 Report #: [id number] B widely patent saphenous vein graft to the distal right coronary artery C patent interposition graft between 2 marginal branches of the circumflex with the origin of that graft being occluded #3 moderate systemic systolic hypertension with severe elevation of left ventricular end-diastolic pressure at rest #4 successful percutaneous transluminal coronary angioplasty at the site of 95% ostial first marginal narrowing with 20% residual narrowing and SRAVAN-3 flow to the distal vessel #5 successful percutaneous coronary intervention with deployment of drug-eluting stent at site of 75% tubular distal circumflex stenosis with 10% residual narrowing and SRAVAN-3 flow to the distal vessel Recommendations Cardiac Risk Reduction Program Aggressive Medical Therapy Medications Administered Aspirin (any) Prasugrel Diagnostic Cath Approved by: Goran Waters MD Date/Time: 05/23/2019 12:47:23 <ELECTRONICALLY SIGNED> By: Lei Sharp MD, [facility] 05/26/19 1559 1559 1559Lei Sharp MD, FAC /INF
== END 2019-05-24 15:52 | disposition home or self-care (01) | DRG 247 ==
LOC: M.ERS 10:49 → M.TBA-CV 12:51 → M.TBA-ER 12:51 → M.2W 12:51 → M.TBA-CV 14:57 → M.2W 19:25
PROVIDERS: Family Medicine; Internal Medicine Cardiovascular Disease; ADMIT Internal Medicine
PROC: 02703ZZ Dilation of Coronary Artery, One Artery, Percutaneous Approach (ICD-10-PCS; principal; 2019-05-21)
PROC: B41FYZZ Fluoroscopy of Right Lower Extremity Arteries using Other Contrast (ICD-10-PCS; principal; 2019-05-21)
PROC: 027034Z Dilation of Coronary Artery, One Artery with Drug-eluting Intraluminal Device, Percutaneous Approach (ICD-10-PCS; principal; 2019-05-21)
PROC: 4A023N7 Measurement of Cardiac Sampling and Pressure, Left Heart, Percutaneous Approach (ICD-10-PCS; principal; 2019-05-21)
PROC: B211YZZ Fluoroscopy of Multiple Coronary Arteries using Other Contrast (ICD-10-PCS; principal; 2019-05-21)
DX: I25.110 Atherosclerotic heart disease of native coronary artery with unstable angina pectoris (principal); I10 Essential (primary) hypertension; F17.210 Nicotine dependence, cigarettes, uncomplicated; I95.1 Orthostatic hypotension; F32.9 Major depressive disorder, single episode, unspecified; I65.29 Occlusion and stenosis of unspecified carotid artery; F41.1 Generalized anxiety disorder; Z79.82 Long term (current) use of aspirin; Z79.899 Other long term (current) drug therapy; Z95.1 Presence of aortocoronary bypass graft; Z95.5 Presence of coronary angioplasty implant and graft; Z90.49 Acquired absence of other specified parts of digestive tract

== ENCOUNTER → 2019-06-17 | Outpatient (CLI) | payer OTHER ==
[~2019-06-17] MED LIST changes: +IMDUR 60 MG TAB60 M1 PO; +RANEXA500 MG PO
== END ==
LOC: M.ULTRA 06-15 10:30
DX: I65.23 Occlusion and stenosis of bilateral carotid arteries (principal)

== ENCOUNTER → 2019-07-28 | Outpatient (CLI) | payer OTHER ==
[2019-07-28 11:23] LABS: CALCIUM 8.8 mg/dL (8.5-10.1); CREATININE 1.2 mg/dL (0.6-1.3); POTASSIUM 4.3 mmol/L (3.5-5.1)
== END ==
LOC: M.LAB 10:40
PROVIDERS: Internal Medicine
DX: N28.89 Other specified disorders of kidney and ureter (principal)

== ENCOUNTER → 2019-07-29 | Outpatient (CLI) | payer OTHER | LOC: M.MRI 11:07 | DX: N28.1 Cyst of kidney, acquired (principal); N28.89 Other specified disorders of kidney and ureter; E27.9 Disorder of adrenal gland, unspecified; D35.01 Benign neoplasm of right adrenal gland ==

== ENCOUNTER → 2019-07-30 | Outpatient (CLI) | payer OTHER | LOC: M.MRI 12:00 | DX: S09.90XD Unspecified injury of head, subsequent encounter (principal); X58.XXXD Exposure to other specified factors, subsequent encounter ==

== ENCOUNTER → 2019-08-26 | Outpatient (CLI) | payer OTHER | LOC: M.MRI 11:30 | PROVIDERS: ATTEND Internal Medicine | DX: M48.02 Spinal stenosis, cervical region (principal); I10 Essential (primary) hypertension; G44.59 Other complicated headache syndrome; M25.561 Pain in right knee; G89.29 Other chronic pain; M25.78 Osteophyte, vertebrae ==

== ENCOUNTER → 2019-09-29 | Outpatient (CLI) | payer OTHER ==
[~2019-09-29] MED LIST changes: +ATIVAN1 M1 PO; +CARVEDILOL25 MG PO; +FISH OIL 1,0001 EAC9 PO; +IMDUR 30 MG TAB30 M1 PO; +NEURONTIN 300M300 M2 PO; +NITROSTAT0.4 M1 SUBLING; +NORCO 10-325 T1 EACH PO; +NORFLEX100 MG PO
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
== END ==
LOC: M.PC 04:12
PROVIDERS: ATTEND Anesthesiology Pain Medicine
DX: M54.2 Cervicalgia (principal); M54.5 Low back pain; I10 Essential (primary) hypertension; I25.10 Atherosclerotic heart disease of native coronary artery without angina pectoris; M62.89 Other specified disorders of muscle; I30.9 Acute pericarditis, unspecified; Z95.1 Presence of aortocoronary bypass graft; Z95.5 Presence of coronary angioplasty implant and graft; Z79.899 Other long term (current) drug therapy; Z90.49 Acquired absence of other specified parts of digestive tract; Z68.25 Body mass index [BMI] 25.0-25.9, adult; V89.2XXA Person injured in unspecified motor-vehicle accident, traffic, initial encounter; Y93.89 Activity, other specified; Y92.89 Other specified places as the place of occurrence of the external cause; Y99.8 Other external cause status

== ENCOUNTER 2019-11-14 17:41 | Emergency (ER) | payer OTHER ==
[~2019-11-14] VITALS: Ht 170.2 cm; Wt 74.8 kg
[2019-11-14] MEDS ORDERED: AMITRIPTYLINE H50 M2 PO (18:06)
[2019-11-14 18:33] LABS: ABSOLUTE EOSINOPHILS 0.2 thou/uL (0.0-0.7); ABSOLUTE LYMPHOCYTES 1.9 thou/uL (0.8-5.3); ABSOLUTE MONOCYTES 0.5 thou/uL (0.0-1.2); ABSOLUTE NEUTROPHILS 4.5 thou/uL (1.6-8.1); BASOPHILS 0.6 %; EOSINOPHILS 2.5 %; HEMATOCRIT 41.3 % (42.0-52.0); HEMOGLOBIN 14.3 gm/dL (14.0-18.0); LYMPHOCYTES 26.6 %; MCH 30.7 pg (26.0-34.0); MCHC 34.6 g/dL (28.0-37.0); MCV 88.7 fL (80.0-100.0); MONOCYTES 6.7 %; MPV 7.8 fl. (7.2-11.1); NUCLEATED RBCS 0 /100WBC; PLATELET COUNT* 245 thou/uL (150-400); POLYS 63.6 %; RBC 4.66 mil/uL (4.50-6.00); RDW-CV 13.5 % (10.5-14.5); WBC 7.1 thou/uL (4.0-11.0)
[2019-11-14 18:38] LABS: CALCIUM 8.3 mg/dL (8.5-10.1); CREATININE 1.1 mg/dL (0.6-1.3); POTASSIUM 3.8 mmol/L (3.5-5.1)
[2019-11-14 18:49] LABS: ALBUMIN 3.4 g/dL (3.4-5.0); TOTAL BILIRUBIN 0.5 mg/dL (<0.1-1.0); TOTAL PROTEIN 6.8 g/dL (6.4-8.2)
[2019-11-14 19:16] LABS: INR 1.1; PROTIME 10.9 Seconds (9.20-11.50)
[2019-11-14] MEDS ORDERED: MOTION RELIEF25 MG PO (19:27)
[2019-11-14 19:42] VITALS: BP 141/76
--- NOTE | 2019-11-15 10:15 | EKG ---
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: : 1960 Requested By: Tiago Tsang Order Number: [id number] MD: Coy Christensen Measurements Intervals [place] Rate: 70 P: 53 KS: 139 QRS: 38 QRSD: 95 T: 126 QT: 382 QTc: 413 Interpretive Statements Sinus rhythm Probable left atrial enlargement Inferior infarct, old Lateral leads are also involved Compared to ECG 05/22/2019 03:12:36 Possible ischemia no longer present Myocardial infarct finding still present Electronically Signed On 11-15-2019 10:15:04 CDT by Coy Christensen [email or web address] <ELECTRONICALLY SIGNED> By: Coy Christensen MD, [facility] 11/15/19 1015 1827 1827 Coy Christensen MD, [facility] /EPI
== END 2019-11-14 19:43 | disposition home or self-care (01) ==
LOC: M.ERS 17:41
PROVIDERS: Emergency Medicine Emergency Medical Services
DX: F07.81 Postconcussional syndrome (principal); I10 Essential (primary) hypertension; F17.210 Nicotine dependence, cigarettes, uncomplicated; Z95.1 Presence of aortocoronary bypass graft; Z95.5 Presence of coronary angioplasty implant and graft; Z90.49 Acquired absence of other specified parts of digestive tract

== ENCOUNTER → 2020-04-22 | Outpatient (CLI) | payer OTHER ==
[~2020-04-22] MED LIST changes: +AMITRIPTYLINE H50 M2 PO; +MOTION RELIEF25 MG PO
[2020-04-22 14:49] LABS: ABSOLUTE EOSINOPHILS 0.2 thou/uL (0.0-0.7); ABSOLUTE LYMPHOCYTES 1.9 thou/uL (0.8-5.3); ABSOLUTE MONOCYTES 0.5 thou/uL (0.0-1.2); ABSOLUTE NEUTROPHILS 3.3 thou/uL (1.6-8.1); BASOPHILS 0.7 %; EOSINOPHILS 3.7 %; HEMATOCRIT 44.7 % (42.0-52.0); HEMOGLOBIN 14.9 gm/dL (14.0-18.0); LYMPHOCYTES 31.8 %; MCH 29.6 pg (26.0-34.0); MCHC 33.4 g/dL (28.0-37.0); MCV 88.7 fL (80.0-100.0); MONOCYTES 8.1 %; NUCLEATED RBCS 0 /100WBC; PLATELET COUNT* 203 thou/uL (150-400); POLYS 55.7 %; RBC 5.04 mil/uL (4.50-6.00); RDW-CV 14.2 % (10.5-14.5)
[2020-04-22 15:05] LABS: ALBUMIN 4.1 g/dL (3.4-5.0); ALKALINE PHOSPHATASE 111 U/L (46-116); ANION GAP 9 mmol/L (7-16); BUN 18 mg/dL (7-18); CALCIUM 9.3 mg/dL (8.5-10.1); CHLORIDE 104 mmol/L (98-107); CHOLESTEROL 175 mg/dL (<200); CO2 27 mmol/L (21-32); CREATININE 1.2 mg/dL (0.6-1.3); GLUCOSE 105 mg/dL (70-99); HDL CHOLESTEROL 43 mg/dL (>40); LDL CHOLESTEROL 107 mg/dL (<100); POTASSIUM 4.3 mmol/L (3.5-5.1); SERUM ASSESSMENT Clear; SGOT 21 U/L (15-37); SGPT 37 U/L (30-65); SODIUM 140 mmol/L (136-145); TC:HDL 4.1 Ratio (Not establshd); TOTAL BILIRUBIN 0.7 mg/dL (<0.1-1.0); TOTAL PROTEIN 7.4 g/dL (6.4-8.2); TRIGLYCERIDE 128 mg/dL (<150); VLDL 26 mg/dL (<40)
[2020-04-23 02:06] LABS: GLYCOHEMOGLOBIN (HGB A1C) 5.9 % (4.8-5.6)
== END ==
LOC: M.LAB 14:11
PROVIDERS: ATTEND Family Medicine
DX: I25.10 Atherosclerotic heart disease of native coronary artery without angina pectoris (principal); E78.2 Mixed hyperlipidemia; K21.9 Gastro-esophageal reflux disease without esophagitis; R53.83 Other fatigue; R73.09 Other abnormal glucose

== ENCOUNTER 2020-07-01 13:45 | Observation (INO) | payer OTHER ==
[~2020-07-01] VITALS: Ht 170.2 cm; Wt 87.5 kg
[2020-07-01 13:48] VITALS: BP 187/87
[2020-07-01 14:14] LABS: ABSOLUTE EOSINOPHILS 0.2 thou/uL (0.0-0.7); ABSOLUTE MONOCYTES 0.5 thou/uL (0.0-1.2); ABSOLUTE NEUTROPHILS 3.7 thou/uL (1.6-8.1); BASOPHILS 0.7 %; EOSINOPHILS 2.5 %; HEMATOCRIT 45.9 % (42.0-52.0); LYMPHOCYTES 30.9 %; MCH 30.1 pg (26.0-34.0); MCHC 32.7 g/dL (28.0-37.0); MONOCYTES 8.1 %; MPV 7.8 fl. (7.2-11.1); NUCLEATED RBCS 0 /100WBC; PLATELET COUNT* 214 thou/uL (150-400); POLYS 57.8 %; RBC 4.99 mil/uL (4.50-6.00); RDW-CV 13.6 % (10.5-14.5); WBC 6.4 thou/uL (4.0-11.0)
[2020-07-01 14:25] LABS: APTT 26.5 Seconds (25.0-31.3); PROTIME 10.8 Seconds (9.20-11.50)
[2020-07-01 14:27] LABS: CALCIUM 9.1 mg/dL (8.5-10.1); POTASSIUM 4.5 mmol/L (3.5-5.1)
[2020-07-01 14:37] LABS: ALBUMIN 4.2 g/dL (3.4-5.0); MAGNESIUM 2.3 mg/dL (1.8-2.4); TOTAL BILIRUBIN 0.5 mg/dL (<0.1-1.0)
--- NOTE | 2020-07-01 20:27 | NUR ---
ADMITTED TO FLOOR PER CART ACCOMPANIED BY ER STAFF WITH BELONGINGS. WALKS FROM CART TO BED WITH SBA. AOX4, PLEASANT. STATES MILD CHEST DISCOMFORT, STERANL AREA 2/10 ON PAIN SCALE. HISTORY OBTAINED AND ASSESSMENT PERFORMED, SEE ADMIT NOTES. TELE SR. KAITLYNN SHARMA IV. HISTORY OBTAINED AND ASSESMENT PERFORMED SEE ADMIT NOTES. ORIENTED TO ROOM AND CALL LITE, INSTRUCTED IN FALL RISK PRECAUTIONS AND PT VERBALIZES UNDERSTANDING AND AGREEMENT.
[2020-07-01 20:34] VITALS: BP 141/72
[2020-07-01 20:37] VITALS: BP 180/99
[2020-07-01 23:51] VITALS: BP 122/66
[2020-07-02 04:12] VITALS: BP 118/65
--- NOTE | 2020-07-02 05:19 | NUR ---
NEW ADMISSION AT START OF SHIFT. AOX4, PLEASANT. PT HAS SLEPT WELL WITHOUT COMPLAINTS. USING URINAL TO VOID OVERNIGHT. TELE SR. ON ADMISSION RATED CHEST PAIN DULL ACHE 2/10. THIS MORNING AWAKENED FOR CARES AND DENIES CHEST PAIN. LAC SL IV. NO LABS THIS MORNING. TROPS NEGATIVE OVERNIGHT. CARDIOLOGY TO SEE PT TODAY. UP WITH SBA, USES CANE PRN AT HOME SINCE CONCUSSION LAST YEAR. ABLE TO USE CALL LITE AND MAKE NEEDS KNOWN. BED ALRM ON FOR SAFETY AND CALL LITE IN EASY REACH.
[2020-07-02 08:09] VITALS: BP 158/84
--- NOTE | 2020-07-02 11:48 | NUR ---
ASSUMED CARE OF PT THIS AM AROUND 0715- ORGANIZATIONAL RESEARCH CONSULTANT IN PLACE ORDERED, TRACING SR- UPON ASSESSMENT PT NOTED TO BE RESTING IN BED- PT A&O X4- CONT OF B/B- SBA WITH TRANSFERS FOR SAFETY-LCTA, RESP EVEN AND UN-LABORED- MILD DISCOMFORT REPORTED TO MID CHEST, ISORBRIDE INCREASED TO 60MG AND GIVEN THIS AM PRESCRIBED-ABD SOFT/ROUND/NON-TENDER, BS X4 QUADS- LAST BM REPORTED 07/01/20- IV NOTED TO LEFT AC INTACT AND SL- GOOD PO INTAKE NOTED THIS AM WITH BREAKFAST- HYDROCODONE GIVEN THIS AM FOR C/O PAIN TO NECK AND BACK- CARDIO SIGNS OFF AND OKAY WITH D/C- CALL LIGHT AND PERSONAL BELONGINGS WITH IN REACH- HOURLY ROUNDS IN PLACE R/T SAFETY/NEEDS- ALL NEEDS MET AT THIS TIME
[2020-07-02] MEDS ORDERED: IMDUR 60 MG TAB60 M1 PO (12:14)
[2020-07-02 12:30] VITALS: BP 158/84
[2020-07-02 13:17] VITALS: BP 158/84
--- NOTE | 2020-07-04 10:44 | EKG ---
[place] [address] ELECTROCARDIOGRAM REPORT Name: JUSTO ENGLISH Room: [address]#: [id number] Admission: 07/01/20 Attend Phys: Adriana Darby, Discharge: 07/02/20 Date of : 58 Date of Service: 07/01/20 1358 Report #: [id number] THIS REPORT FOR: //name// [facility] ED Test Date: 2020-07-01 Test Time: 13:58:26 Pat Name: JUSTO ENGLISH Department: Room: [facility] Gender: M Electronic Publishing Specialist: RUBI : 1960 Requested By: Tiago Tsang Order Number: [id number] MD: Coy Christensen Measurements Intervals [place] Rate: 64 P: 36 VT: 152 QRS: 25 QRSD: 94 T: 120 QT: 431 QTc: 445 Interpretive Statements Sinus rhythm Left atrial enlargement Inferior infarct, old Lateral leads are also involved Compared to ECG 11/14/2019 18:27:12 No significant changes Electronically Signed On 07-04-2020 10:44:21 CDT by Coy Christensen [email or web address] <ELECTRONICALLY SIGNED> By: Coy Christensen MD, FAC 07/04/20 1044 1358 1358 Coy Christensen MD, FAC /EPI
== END 2020-07-02 13:15 | disposition home or self-care (01) ==
LOC: M.ERS 13:45 → M.TBA-ER 15:17 → M.2W 20:30
PROVIDERS: Emergency Medicine Emergency Medical Services; ADMIT Internal Medicine; ATTEND Internal Medicine
DX: I25.119 Atherosclerotic heart disease of native coronary artery with unspecified angina pectoris (principal); Z20.822 Contact with and (suspected) exposure to COVID-19; G89.29 Other chronic pain; M54.9 Dorsalgia, unspecified; F07.81 Postconcussional syndrome; F17.200 Nicotine dependence, unspecified, uncomplicated; Z79.82 Long term (current) use of aspirin; Z79.899 Other long term (current) drug therapy; Z90.49 Acquired absence of other specified parts of digestive tract

== ENCOUNTER → 2020-11-23 | Outpatient (CLI) | payer OTHER ==
[2020-11-23 14:41] LABS: ALBUMIN 4.1 g/dL (3.4-5.0); ALKALINE PHOSPHATASE 127 U/L (46-116); CHOLESTEROL 139 mg/dL (<200); DIRECT BILIRUBIN 0.1 mg/dL (<0.1-0.3); HDL CHOLESTEROL 38 mg/dL (>40); LDL CHOLESTEROL 72 mg/dL (<100); SGOT 27 U/L (15-37); SGPT 48 U/L (30-65); TC:HDL 3.7 Ratio (Not establshd); TOTAL BILIRUBIN 0.4 mg/dL (<0.1-1.0); TOTAL PROTEIN 7.6 g/dL (6.4-8.2); TRIGLYCERIDE 147 mg/dL (<150); VLDL 29 mg/dL (<40)
[2020-11-23 14:47] LABS: SERUM ASSESSMENT Clear
== END ==
LOC: M.LAB 14:09
PROVIDERS: ATTEND Nurse Practitioner
DX: E78.00 Pure hypercholesterolemia, unspecified (principal)

== ENCOUNTER 2020-12-20 10:52 | Observation (INO) | payer OTHER ==
[2020-12-20] VITALS (11 sets, daily range): BP systolic 121–168; BP diastolic 81–96
[~2020-12-20] VITALS: Ht 170.2 cm; Wt 89.4 kg
--- NOTE | ~2020-12-20 | H ---
[address] [address] HISTORY AND PHYSICAL Name: JUSTO ENGLISH Room: [address] Yessi Wynn#: [id number] Admission: 12/20/20 Attend Phys: Goran Waters MD Discharge: 12/21/20 Date of : 58 Report #: [id number] THIS REPORT FOR: cc: Martin Fernando Russell J. DO [facility],Medical Records Staff ~ Please refer to the History and Physical performed in the physician's office. By: [id number] Records Staff JAMIE /VALENTÍN
[2020-12-20 11:16] LABS: HEMATOCRIT 46.4 % (42.0-52.0); HEMOGLOBIN 15.6 gm/dL (14.0-18.0); MCH 30.6 pg (26.0-34.0); MCHC 33.6 g/dL (28.0-37.0); MCV 91.1 fL (80.0-100.0); MPV 8.4 fl. (7.2-11.1); RBC 5.1 mil/uL (4.50-6.00); WBC 10.2 thou/uL (4.0-11.0)
[2020-12-20 11:26] LABS: ANION GAP 9 mmol/L (7-16); BUN 19 mg/dL (7-18); CALCIUM 9.1 mg/dL (8.5-10.1); CHLORIDE 101 mmol/L (98-107); CO2 27 mmol/L (21-32); CREATININE 1.4 mg/dL (0.6-1.3); GLUCOSE 103 mg/dL (70-99); POTASSIUM 4.5 mmol/L (3.5-5.1); SODIUM 137 mmol/L (136-145)
[2020-12-20 11:28] LABS: APTT 25.9 Seconds (25.0-31.3); INR 1.1; PROTIME 11.5 Seconds (9.20-11.50)
[2020-12-20 11:29] LABS: SERUM ASSESSMENT Clear
[2020-12-20 11:30] LABS: ALBUMIN 4.5 g/dL (3.4-5.0); ALKALINE PHOSPHATASE 147 U/L (46-116); CHOLESTEROL 143 mg/dL (<200); HDL CHOLESTEROL 42 mg/dL (>40); LDL CHOLESTEROL 81 mg/dL (<100); SGOT 25 U/L (15-37); SGPT 45 U/L (30-65); TC:HDL 3.4 Ratio (Not establshd); TOTAL BILIRUBIN 0.4 mg/dL (<0.1-1.0); TOTAL PROTEIN 8.5 g/dL (6.4-8.2); TRIGLYCERIDE 103 mg/dL (<150); VLDL 21 mg/dL (<40)
--- NOTE | 2020-12-20 13:38 | EKG ---
[place] [address] ELECTROCARDIOGRAM REPORT Name: JUSTO ENGLISH Room: [facility]#: [id number] Admission: 12/20/20 Attend Phys: Goran Waters, Discharge: Date of : 58 Date of Service: 12/20/20 1115 Report #: [id number] THIS REPORT FOR: //name// [facility] Test Date: 2020-12-20 Test Time: 11:15:24 Pat Name: JUSTO ENGLISH Department: Room: Gender: Law Secretary: : 1960 Requested By: Goran Waters Order Number: [id number] Reading MD: Coy Christensen Measurements Intervals [place] Rate: 73 P: 28 NC: 156 QRS: 36 QRSD: 109 T: 146 QT: 355 QTc: 392 Interpretive Statements Sinus rhythm Probable left atrial enlargement Inferior infarct, old Lateral leads are also involved Compared to ECG 07/01/2020 13:58:26 No significant changes Electronically Signed On 12-20-2020 13:38:20 CDT by Coy Christensen [email or web address] <ELECTRONICALLY SIGNED> By: Coy Christensen MD, FACC 12/20/20 1338 1115 1115 Coy Christensen MD, FAC /EPI
--- NOTE | 2020-12-20 16:02 | EKG ---
[place] [address] ELECTROCARDIOGRAM REPORT Name: JUSTO ENGLISH Room: [address]#: [id number] Admission: 12/20/20 Attend Phys: Goran Waters, Discharge: Date of : 58 Date of Service: 12/20/20 1326 Report #: [id number] THIS REPORT FOR: //name// [facility] Test Date: 2020-12-20 Test Time: 13:26:36 Pat Name: JUSTO ENGLISH Department: Room: [facility] Gender: M Financial Planning Adviser: TITA : 1960 Requested By: Coy Christensen Order Number: [id number] Vianey MD: Coy Christensen Measurements Intervals [place] Rate: 67 P: 47 [place]: 158 QRS: 48 QRSD: 110 T: 154 QT: 387 QTc: 409 Interpretive Statements Sinus rhythm Left atrial enlargement old inferior infarction Borderline repolarization abnormality Compared to ECG 12/20/2020 11:15:24 no change Electronically Signed On 12-20-2020 16:02:12 CDT by Coy Christensen [email or web address] <ELECTRONICALLY SIGNED> By: Coy Christensen MD, FACC 12/20/20 1602 1326 1326 Coy Christensen MD, [facility] /EPI
--- NOTE | 2020-12-20 16:55 | CARD ---
[address] [address] CARDIAC CATH REPORT Name: JUSTO ENGLISH Room: [address] [place]#: [id number] Admission: 12/20/20 Attend Phys: Goran Waters MD Discharge: Date of : 58 Report #: [id number] THIS REPORT FOR: cc: Martin Fernando Russell J. DO Blick,Coy Blood MD [facility] ~ APPROVED REPORT Study performed: 12/20/2020 08:48:53 Patient Details Patient Status: Out-Patient Room #: The patient is a 60 year-old male Event Personnel Dr. Waters, Dr. Christensen (PCI), Conner Pittman RTR, Luca Barber HOUSE WIRER HELPER, Romana Cole RN, Long García play back operator Performed [facility] w/ Bypass Grafts. PCI LAD Indication Unstable angina , Chest pain Risk Factors Arterial Hypertension, Hypercholesterolemia, Coronary Artery Disease Previous Procedures/Diagnoses Previous CABGPrevious PCI, Previous [place] Admission/Lab Medications/Medications given during procedure Glycoprotein IllbIlla Inhibitors, Heparin Unfract. Procedure Narrative The patient was brought electively to the Cardiac Catheterization Laboratory and was prepped and draped in a sterile manner. The right femoral was infiltrated with 2% Lidocaine subcutaneous anesthesia. IV conscious sedation was used throughout procedure with appropriate monitoring and was performed in the presence of a registered nurse who was an independent trained observer other than the physician performing the procedure. A 6Fr [place] sheath was inserted into the right femoral artery. Coronary [place] [address] CARDIAC CATH REPORT Name: JUSTO ENGLISH [address]: [address]#: [id number] Admission: 12/20/20 Attend Phys: Goran Waters MD Discharge: Date of : 58 Report #: [id number] coronary diagnostic catheters. The right coronary system was accessed and visualized with a Diagnostic JR4 6Fr catheter. The left coronary system was accessed and visualized with a Diagnostic JL4 6Fr catheter. The left ventricle was accessed and visualized with a Diagnostic Pigtail 6Fr catheter. Left ventricular/Aortic Valve gradient assessed via catheter pullback. Pre-demployment femoral angiogram was performed . Closure device was deployed with a 6 Fr Angioseal. The patient tolerated the procedure well and there were no complications associated with the procedure. There was no hematoma. Intraoperative Conscious Sedation Sedation start time: 1154 Case end Time: 1256 Fentanyl 25.0 mcg Versed 1.0 mg Fluoro Time: 11.8 minutes Dose: DAP 417455 cGycm2 2000.79 mGy Contrast Type and Amount: 185 [place] Coronary Angiography The patient's coronary anatomy is right dominant. [place] Artery Percent Stenosis A GRADY graft to the distal LAD is widely patent with good distal anastomoses. A saphenous vein graft to the PDA and posterior lateral LV branch is widely patent. A saphenous vein graft to the first and second obtuse marginal branch in sequential fashion is occluded from its origin to the first obtuse marginal branch. The jump portion from the first obtuse marginal branch of the second obtuse marginal branch is widely patent. Patent GRADY graft to the LAD. Diagnostic Cath Left Main The left main has has plaquing without significant stenoses. LAD The ostium of the LAD is 90% stenosed. The distal vessel fills by a GRADY graft. Diagonal 1 A small first diagonal is diffusely moderately plaqued. Diagonal 2 The second diagonal branch is moderately diffusely plaque with a an ostial 80% stenoses and a focal 90% mid stenosis. Diagonal 3 The third diagonal branch is diffusely moderately plaque [place] [address] CARDIAC CATH REPORT Name: JUSTO ENGLISH Room: [address] [place]#: [id number] Admission: 12/20/20 Attend Phys: Goran Waters MD Discharge: Date of : 58 Report #: [id number] Circumflex There is 80% in-stent restenosis noted in the proximal portion of the circumflex. There are patent stents noted in the mid to distal vessel. OM1 The first obtuse marginal branch appears chronically occluded. Multiple stents are visualized along its course. The distal portion of the first obtuse marginal fills retrogradely from a portion of a graft extending between the first and second obtuse marginal branches. This graft is occluded proximal to this. OM2 The second obtuse marginal branch is moderately plaqued without hemodynamically significant stenoses. A jump graft fills the distal first obtuse marginal in retrograde fashion. The proximal portion of this graft is occluded. Right Coronary The right coronary artery is occluded proximally and a stented portion. The distal vessel is visualized by retrograde perfusion from a saphenous vein graft and is diffusely diseased. R PDA The right PDA is grafted and diffusely moderately plaque. RPLV The right posterior lateral LV branch is grafted and appears diffusely moderately plaqued. Hemodynamics The aortic pressure is 157/83 mmHg with a mean of 87 mmHg. The left ventricular pressure is 130/8 mmHg with a mean of 27 mmHg. The left ventricular end diastolic pressure is 27 mmHg. There was no gradient across the aortic valve upon pullback. Pullback from the left ventricle to the aorta revealed no gradient across the aortic valve. PCI Technique Lesion Anticoagulation was achieved with Heparin. bolus of IV Aggrastat given Percutaneous coronary intervention was performed on the proximal circumflex artery segment. The lesion stenosis prior to intervention was 80% with SRAVAN 3 flow. A 6Fr XB 3.5 Guide Catheter was used to engage the Left ostium. A BMW 180cm Interventional Guidewire was used to cross the lesion. BALLOON DILATION A Balloon catheter Euphora SC 2.5x12mm was inserted and inflated up to 16.00atm for 19seconds. Repeat angiography revealed the following post-dilatation results: 40% stenosis. Additional Inflation: 14.00atm for 14seconds. Additional Inflation: 18.00atm for 7seconds. STENT DEPLOYMENT A drug-eluting stent Xience Aletha 3.0x28mm was inserted and inflated up to 18.00atm for 12seconds. [place] [address] CARDIAC CATH REPORT Name: JUSTO ENGLISH Room: [address] Yessi Wynn#: [id number] Admission: 12/20/20 Attend Phys: Goran Waters MD Discharge: Date of : 58 Report #: [id number] following post-stent deployment results: 0% stenosis. Additional Inflation: 20.00atm for 16seconds. Final angiography reveals 0 % stenosis with SRAVAN 3 flow. Conclusion 1. Severe three-vessel coronary artery disease as outlined above. 2. Patent GRADY graft to the LAD. 3. Patent saphenous vein graft to the right PDA/posterior lateral LV branch. 4. Occluded saphenous vein graft to the first obtuse marginal branch with a patent jump portion from the 1st-2nd obtuse marginal branch. 5. In-stent restenosis in the proximal circumflex. 6. Elevated left ventricular end-diastolic pressure consistent with acute diastolic heart failure. 7. successful placement of a Abbot drug eluiting stent into the proximal circumflex that extended proximally into the left main artery. Recommendations 1. Percutaneous coronary intervention to the proximal circumflex coronary artery. 2. Continue aggressive risk factor modification. Medications Administered Prasugrel Diagnostic Cath Approved by: Goran Waters MD Date/Time: <ELECTRONICALLY SIGNED> By: Coy Christensen MD, [facility] 12/20/201654 54 54Coy Christensen MD, FAC /INF
[2020-12-21 00:39] VITALS: BP 141/74
[2020-12-21 04:51] VITALS: BP 144/69
[2020-12-21 05:09] LABS: ABSOLUTE EOSINOPHILS 0.2 thou/uL (0.0-0.7); ABSOLUTE LYMPHOCYTES 2.1 thou/uL (0.8-5.3); ABSOLUTE MONOCYTES 0.8 thou/uL (0.0-1.2); ABSOLUTE NEUTROPHILS 4.6 thou/uL (1.6-8.1); BASOPHILS 0.2 %; EOSINOPHILS 3.2 %; HEMATOCRIT 38.4 % (42.0-52.0); LYMPHOCYTES 27.5 %; MCHC 33.2 g/dL (28.0-37.0); MCV 90.2 fL (80.0-100.0); MPV 8.5 fl. (7.2-11.1); NUCLEATED RBCS 0 /100WBC; PLATELET COUNT* 192 thou/uL (150-400); POLYS 59.1 %; RBC 4.26 mil/uL (4.50-6.00); RDW-CV 13.3 % (10.5-14.5); WBC 7.8 thou/uL (4.0-11.0)
[2020-12-21 05:21] LABS: POTASSIUM 3.8 mmol/L (3.5-5.1)
[2020-12-21 05:23] LABS: HEMOGLOBIN 12.8 gm/dL (14.0-18.0)
[2020-12-21 05:25] LABS: CALCIUM 8.2 mg/dL (8.5-10.1); CREATININE 1.1 mg/dL (0.6-1.3)
[2020-12-21 09:00] VITALS: BP 128/85
[2020-12-21 09:33] VITALS: BP 128/85
[2020-12-21] MEDS ORDERED: EFFIENT10 MG PO (09:36)
[2020-12-21 10:29] VITALS: BP 128/85
--- NOTE | 2020-12-21 11:21 | EKG ---
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: CHICHO : 1960 Requested By: Goran Waters Order Number: [id number] Reading MD: Coy Christensen Measurements Intervals [place] Rate: 80 P: 54 [place]: 157 QRS: 65 QRSD: 102 T: 151 QT: 369 QTc: 426 Interpretive Statements Sinus rhythm old inferior infarction Probable left atrial enlargement Nonspecific T abnrm, anterolateral leads Compared to ECG 12/20/2020 13:26:36 no change Electronically Signed On 12-21-2020 11:20:34 CDT by Coy Christensen [email or web address] <ELECTRONICALLY SIGNED> By: Coy Christensen MD, [facility] 12/21/20 1120 0 0 Coy Christensen MD, [facility] /EPI
--- NOTE | 2020-12-26 09:03 | D ---
[facility] [address] [place] [address] DISCHARGE SUMMARY Name: JUSTO ENGLISH Room: [address] [id number] Admission: 12/20/20 Attend Phys: Goran Waters MD Discharge: 12/21/20 Date of : 58 Report #: [id number] THIS REPORT FOR: cc: Martin Fernando Russell J. DO Liston, Michael J. MD [facility] ~ cc: Viktor Murphy MD DISCHARGE DIAGNOSES: 1. Unstable angina. 2. Coronary artery disease. 3. History of coronary artery bypass grafting. PROCEDURES DURING HOSPITALIZATION: 1. Coronary angiography. 2. Left heart catheterization. 3. Percutaneous coronary intervention to the proximal circumflex coronary artery. HOSPITAL COURSE: The patient was brought to the hospital with progressive angina. Catheterization revealed 80% in-stent restenosis in the proximal circumflex coronary artery, for which the patient had additional drug-eluting stent placed with excellent result. The patient had underlying diffuse 3-vessel coronary artery disease as outlined in catheterization report. The procedure was uneventful. The patient recovered in the usual fashion. The patient is being discharged uneventfully. DISCHARGE MEDICATIONS: Will include atorvastatin 80 mg p.o. at bedtime, aspirin 81 mg p.o. daily, prasugrel 10 mg p.o. daily, amitriptyline 50 mg at bedtime, gabapentin 300 mg t.i.d., carvedilol 25 mg b.i.d., orphenadrine citrate 100 mg p.o. q. 6 hours p.r.n., lorazepam 1 mg daily p.r.n., Ambien 5 mg at bedtime p.r.n., Nitrostat sublingual p.r.n. DISPOSITION: The patient will follow up with Cardiology office in 4 weeks. <ELECTRONICALLY SIGNED> By: Goran Waters MD, FACC 12/26/20 0903 0841 [id number] Waters MD, FACC /nt
== END 2020-12-21 13:38 | disposition home or self-care (01) ==
LOC: M.CL 10:52 → M.TBA-CV 13:32 → M.2W 17:10
PROVIDERS: ADMIT Internal Medicine Cardiovascular Disease; ATTEND Internal Medicine Cardiovascular Disease
DX: I25.110 Atherosclerotic heart disease of native coronary artery with unstable angina pectoris (principal); Z20.822 Contact with and (suspected) exposure to COVID-19; I10 Essential (primary) hypertension; E78.00 Pure hypercholesterolemia, unspecified; Z79.82 Long term (current) use of aspirin; Z79.899 Other long term (current) drug therapy; Z95.1 Presence of aortocoronary bypass graft; Z23 Encounter for immunization

== ENCOUNTER → 2021-03-14 | Outpatient (CLI) | payer OTHER ==
[~2021-03-14] MED LIST changes: +EFFIENT10 MG PO
--- NOTE | 2021-03-30 14:19 | PF ---
[address] [address] PULMONARY FUNCTION REPORT Name: JUSTO ENGLISH Room: [facility]#: [id number] Admission: 03/14/21 Attend Phys: Ayse Hall RN Discharge: Date of : 58 Report #: [id number] THIS REPORT FOR: cc: Martin Fernando Russell J. DO Pervez, Adeel MD ~ DATE OF VISIT: 03/14/2021 INTERPRETATION: The FEV1/FVC ratio is normal at 77% with an FVC decreased to 71%. The FEV1 is also decreased to 72%. The FEF 25-75 is decreased to 78%. None of these values increased after the administration of a bronchodilator. The patient's FEV1 is 2.28 liters, which does not increase after the administration of a bronchodilator. The flow volume loop is concave upwards. The total lung capacity is decreased to 69% with residual volume decreased to 63%. The DLCO as adjusted for hemoglobin is also decreased to 41%. IMPRESSION: 1. There is restriction present with a total lung capacity decreased to 69%. 2. The flow volume loop is concave upwards and therefore the possibility of mild obstruction, which is masked by restriction is also considered, clinical correlation is advised; however, no definite evidence of obstruction is seen. 3. The DLCO as adjusted for hemoglobin is decreased to 41%. <ELECTRONICALLY SIGNED> By: Chandrakant Loera MD 03/30/21 1419 1354 2052Amonica Loera MD /amie
== END ==
LOC: M.PUL 13:00
PROVIDERS: ATTEND Nurse Practitioner
DX: R06.02 Shortness of breath (principal); Z72.0 Tobacco use

== ENCOUNTER 2021-03-22 11:18 | Emergency (ER) | payer OTHER ==
[~2021-03-22] VITALS: Ht 170.2 cm; Wt 86.2 kg
[2021-03-22 13:29] LABS: ABSOLUTE LYMPHOCYTES 0.9 thou/uL (0.8-5.3); ABSOLUTE MONOCYTES 0.3 thou/uL (0.0-1.2); ABSOLUTE NEUTROPHILS 5.7 thou/uL (1.6-8.1); BASOPHILS 0.4 %; EOSINOPHILS 0.5 %; LYMPHOCYTES 13.3 %; MCH 30.6 pg (26.0-34.0); MCHC 33.4 g/dL (28.0-37.0); MCV 91.8 fL (80.0-100.0); MONOCYTES 3.8 %; MPV 8.1 fl. (7.2-11.1); NUCLEATED RBCS 0 /100WBC; PLATELET COUNT* 221 thou/uL (150-400); RBC 3.93 mil/uL (4.50-6.00); RDW-CV 13.3 % (10.5-14.5)
[2021-03-22 13:35] LABS: CALCIUM 8.9 mg/dL (8.5-10.1); CREATININE 1.1 mg/dL (0.6-1.3); POTASSIUM 4.1 mmol/L (3.5-5.1)
[2021-03-22 13:40] LABS: ALBUMIN 3.6 g/dL (3.4-5.0); TOTAL BILIRUBIN 0.6 mg/dL (<0.1-1.0); TOTAL PROTEIN 7.5 g/dL (6.4-8.2)
--- NOTE | 2021-03-22 13:51 | EKG ---
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: : 1960 Requested By: Chilango Corbin Order Number: [id number] MD: Lei Sharp Measurements Intervals [place] Rate: 76 P: 50 [place]: 164 QRS: 37 QRSD: 105 T: 82 QT: 378 QTc: 426 Interpretive Statements Sinus rhythm Left atrial enlargement Abnormal R-wave progression, late transition Nonspecific repol abnormality Compared to ECG 12/21/2020 08:11:[address]-T alterations persist Inferior Q-wave is noted only in lead III Electronically Signed On 03-22-2021 13:51:39 INVESTIGATION SPECIALIST by Lei Sharp [email or web address] <ELECTRONICALLY SIGNED> By: Lei Sharp MD, [facility] 03/22/21 1351 1140 1140 Lei Sharp MD, [facility] /EPI
[2021-03-22 16:33] VITALS: BP 173/88
== END 2021-03-22 16:40 | disposition home or self-care (01) ==
LOC: M.ERS 11:18
PROVIDERS: Emergency Medicine
DX: R29.2 Abnormal reflex (principal); I10 Essential (primary) hypertension; E78.5 Hyperlipidemia, unspecified; F41.9 Anxiety disorder, unspecified; F32.9 Major depressive disorder, single episode, unspecified; Z90.49 Acquired absence of other specified parts of digestive tract; Z79.899 Other long term (current) drug therapy; Z87.891 Personal history of nicotine dependence

== ENCOUNTER → 2021-05-05 | Outpatient (CLI) | payer OTHER | LOC: M.CT 14:32 | PROVIDERS: ATTEND Internal Medicine | DX: Z12.2 Encounter for screening for malignant neoplasm of respiratory organs (principal); I25.10 Atherosclerotic heart disease of native coronary artery without angina pectoris; R91.8 Other nonspecific abnormal finding of lung field; Z87.891 Personal history of nicotine dependence ==

== ENCOUNTER → 2021-05-08 | Outpatient (CLI) | payer OTHER ==
[2021-05-08 13:01] LABS: ABSOLUTE EOSINOPHILS 0.2 thou/uL (0.0-0.7); ABSOLUTE LYMPHOCYTES 1.4 thou/uL (0.8-5.3); ABSOLUTE MONOCYTES 0.5 thou/uL (0.0-1.2); ABSOLUTE NEUTROPHILS 3.8 thou/uL (1.6-8.1); BASOPHILS 0.6 %; EOSINOPHILS 3.3 %; HEMATOCRIT 39.8 % (42.0-52.0); HEMOGLOBIN 13.2 gm/dL (14.0-18.0); LYMPHOCYTES 23.6 %; MCH 30.1 pg (26.0-34.0); MCHC 33.1 g/dL (28.0-37.0); MONOCYTES 8.2 %; MPV 8.3 fl. (7.2-11.1); NUCLEATED RBCS 0 /100WBC; PLATELET COUNT* 223 thou/uL (150-400); POLYS 64.3 %; RBC 4.38 mil/uL (4.50-6.00); RDW-CV 13.3 % (10.5-14.5); WBC 5.9 thou/uL (4.0-11.0)
[2021-05-08 13:14] LABS: ALBUMIN 3.7 g/dL (3.4-5.0); CALCIUM 8.8 mg/dL (8.5-10.1); POTASSIUM 4.4 mmol/L (3.5-5.1); TOTAL BILIRUBIN 0.4 mg/dL (<0.1-1.0); TOTAL PROTEIN 7.1 g/dL (6.4-8.2)
[2021-05-08 14:07] LABS: ESR (SEDRATE) 12 mm/hr (0-20)
== END ==
LOC: M.LAB 12:39
PROVIDERS: ATTEND Psychiatry & Neurology Neuromuscular Medicine
DX: F32.A Depression, unspecified (principal); J34.89 Other specified disorders of nose and nasal sinuses; H74.8X3 Other specified disorders of middle ear and mastoid, bilateral; F41.9 Anxiety disorder, unspecified; Z87.820 Personal history of traumatic brain injury